=== PATIENT | male | born 1970 | race Caucasian/White ===

== ENCOUNTER 2021-06-03 06:54 | Emergency (ER) | payer OTHER ==
--- OUTSIDE RECORDS SUMMARY | 2021-06-03 06:56 | XMS REPORT | Continuity of Care Document ---
:1970 Author Organization [facility] t Address [address] [place] [address] Care Team Providers Name Role Phone [phone] Primary Care Physician Unavailable BEV WEBB Attending Clinician Unavailable RANJIT Attending Clinician Unavailable MANUEL Attending Clinician Unavailable MANUEL Admitting Clinician Unavailable Payers Payer Name Policy Type Policy Number Effective Date Expiration Date S amrita SANTIAGO O [id number] 2008 00:00:00 Problems This patient has no known problems. Allergies, Adverse Reactions, Alerts This patient has no known allergies or adverse reactions. Medications This patient has no known medications. Vital Signs Vital Name Observation Time Observation Value Comments Source WEIGHT 2020-06-06 10:09:28 104.6 kg Procedures This patient has no known procedures. Encounters Start End Encounter Admission Attending Care Care Encounter Source Date/Time Date/Time Type Type Clinicians Facility Department ID 2020-12-25 2020-12-25 Outpatient ELENA WEBB MDA MDA [id number] 12:59:00 23:59:00 GUILLE fofana 2020-06-06 2020-06-06 Outpatient ELENA CHURCH MDA MDA [id number] 08:39:49 23:59:00 QING fofana 2020-06-06 2020-06-06 Outpatient ELENA CHURCH MDA MDA [id number] 10:00:28 11:10:14 QING fofana 2019-10-27 2019-10-27 Outpatient ELENA WEBB MDA MDA [id number] 13:05:52 23:59:00 Wen fofana Results Test Description Test Time Test Comments Results Result Comments Source FOLATE, SERUM 2016-08-13 05:48:00 Test Item Value Reference Range Interpretation Comme nts FOLATE (BEAKER) (test code = 362) 7.6 ng/mL >=7.0 Effective 03/22/2014: Folate Reference Range ChangeNew: >=7.0 Previous: >=[id number] 11:08:00 Test Item Value Reference Range Interpretation Comments RPR SCREEN (BEAKER) (test code = Nonreactive Nonreactive 420) HEPATIC FUNCTION [id number] 09:56:00 Test Item Value Reference Range Interpretation Comments TOTAL PROTEIN (BEAKER) 7.2 gm/dL 6.0-8.3 Speci men slightly (test code = 770) hemolyzed ALBUMIN (BEAKER) (test 3.9 g/dL 3.5-5.0 Speci men slightly code = 1145) hemolyzed BILIRUBIN TOTAL 0.6 mg/dL 0.2-1.2 Specimen sli ghtly (BEAKER) (test code = hemoly zed 377) BILIRUBIN DIRECT 0.2 mg/dL 0.1-0.5 Specimen sl ightly (BEAKER) (test code = hemoly zed 706) ALKALINE PHOSPHATASE 38 U/L 40-150 L (BEAKER) (test code = 346) AST (SGOT) (BEAKER) 22 U/L 5-34 Specimen slightly (test code = 353) hemolyzed ALT (SGPT) (BEAKER) 21 U/L 6-55 Specimen slightly (test code = 347) hemolyzed FastingHEMOGLOBIN [id number] 07:54:00 Test Item Value Reference Range Interpretation Comments HEMOGLOBIN A1C (BEAKER) (test code = 5.8 % 4.3-6.1 368) T4, [id number] 06:32:00 Test Item Value Reference Range Interpretation Comments FREE T4 (BEAKER) (test code = 655) 0.79 ng/dL 0.70-1.48 TSH/FREE T4 IF [id number] 05:20:00 Test Item Value Reference Range Interpretation Comments THYROID STIMULATING HORMONE 6.44 uIU/mL 0.35-4.94 H (BEAKER) (test code = 772) VITAMIN [id number] 05:17:00 Test Item Value Reference Range Interpretation Comments VITAMIN B12 (BEAKER) (test code = 268 pg/mL 213-816 774) CALCIUM, [id number] 04:55:00 Test Item Value Reference Range Interpretation Comments CALCIUM IONIZED (BEAKER) (test 1.03 mmol/L 1.12-1.27 L code = 698) PH, BLOOD (BEAKER) (test code = 7.50 1810) BASIC METABOLIC [id number] 04:39:00 Test Item Value Reference Range Interpretation Comments SODIUM (BEAKER) 137 meq/L 136-145 (test code = 381) POTASSIUM (BEAKER) 4.0 meq/L 3.5-5.1 Specimen slightly (test code = 379) hemolyzed CHLORIDE (BEAKER) 106 meq/L 98-107 (test code = 382) CO2 (BEAKER) (test 21 meq/L 22-29 L code = 355) BLOOD UREA NITROGEN 15 mg/dL 7-21 (BEAKER) (test code = 354) CREATININE (BEAKER) 1.08 mg/dL 0.57-1.25 Specimen slightly (test code = 358) hemolyzed GLUCOSE RANDOM 99 mg/dL 70-105 (BEAKER) (test code = 652) CALCIUM (BEAKER) 9.1 mg/dL 8.4-10.2 (test code = 697) EGFR (BEAKER) (test 74 mL/min/1.73 ESTIMA NILSON GFR IS code = 1092) sq m NOT ACCURATE CREATININE CLEARANCE IN PREDICTING GLOMERULAR FILTRATION RATE . ESTIMATED GFR I S NOT APPLICABLE FOR DIALYSIS PATIEN TS. FastingLIPID [id number] 04:39:00 Test Item Value Reference Range Interpretation Comments TRIGLYCERIDES (BEAKER) 240 mg/dL Speci men slightly (test code = 540) hemolyzed CHOLESTEROL (BEAKER) 166 mg/dL Specime n slightly (test code = 631) hemolyzed HDL CHOLESTEROL (BEAKER) 34 mg/dL (test code = 976) LDL CHOLESTEROL 84 mg/dL CALCULATED (BEAKER) (test code = 633) Triglyceride Reference Range: Low Risk <150 Borderline 150-199 High Risk 200-499 Very High Risk >=500Cholesterol Reference Range: Low Risk <200 Borderline 200-239 High Risk >240HDL Cholesterol Reference Range: Low Risk >=60 High Risk <40LDL Cholesterol Reference Range: Optimal <100 Near Optimal 100-129 Borderline 130-159 High 160-189 Very High >=190 FastingPT/[id number] 04:29:00 Test Item Value Reference Range Interpretation Comments PROTIME (BEAKER) (test code = 12.9 seconds 11.7-14.7 759) INR (BEAKER) (test code = 370) 1.0 <=5.9 PARTIAL THROMBOPLASTIN TIME 26.4 seconds 22.5-36.0 (BEAKER) (test code = 760) RECOMMENDED COUMADIN/WARFARIN INR THERAPY RANGESSTANDARD DOSE: 2.0 - 3.0 Includes: PROPHYLAXIS forvenous thrombosis, systemic embolization; TREATMENT for venous thrombosis and/or pulmonary embolus.HIGH RISK: Target INR is 2.5-3.5 for patients with mechanical heart valves.CBC W/PLT COUNT & AUTO DIFFERENTIAL 2016-08-12 04:23:00 Test Item Value Reference Range Interpretation Comments WHITE BLOOD CELL COUNT (BEAKER) 7.8 K/ L 4.0-10.0 (test code = 775) RED BLOOD CELL COUNT (BEAKER) 3.88 M/ L 4.20-5.80 L (test code = 761) HEMOGLOBIN (BEAKER) (test code = 13.6 GM/DL 13.0-16.8 410) HEMATOCRIT (BEAKER) (test code = 38.4 % 40.0-50.0 L 411) MEAN CORPUSCULAR VOLUME (BEAKER) 98.8 fL 82.0-98.0 H (test code = 753) MEAN CORPUSCULAR HEMOGLOBIN 35.0 pg 27.0-33.0 H (BEAKER) (test code = 751) MEAN CORPUSCULAR HEMOGLOBIN CONC 35.4 GM/DL 32.0-36.0 (BEAKER) (test code = 752) RED CELL DISTRIBUTION WIDTH 12.7 % 10.3-14.2 (BEAKER) (test code = 412) PLATELET COUNT (BEAKER) (test code 90 K/CU MM 150-430 L = 756) MEAN PLATELET VOLUME (BEAKER) 7.5 fL 6.5-10.5 (test code = 754) NUCLEATED RED BLOOD CELLS (BEAKER) 0 /100 WBC 0-0 (test code = 413) NEUTROPHILS RELATIVE PERCENT 47 % (BEAKER) (test code = 429) LYMPHOCYTES RELATIVE PERCENT 41 % (BEAKER) (test code = 430) MONOCYTES RELATIVE PERCENT 9 % (BEAKER) (test code = 431) EOSINOPHILS RELATIVE PERCENT 1 % (BEAKER) (test code = 432) BASOPHILS RELATIVE PERCENT 1 % (BEAKER) (test code = 437) NEUTROPHILS ABSOLUTE COUNT 3.70 K/ L 1.80-8.00 (BEAKER) (test code = 670) LYMPHOCYTES ABSOLUTE COUNT 3.22 K/ L 1.48-4.50 (BEAKER) (test code = 414) MONOCYTES ABSOLUTE COUNT (BEAKER) 0.74 K/ L 0.00-1.30 (test code = 415) EOSINOPHILS ABSOLUTE COUNT 0.09 K/ L 0.00-0.50 (BEAKER) (test code = 416) BASOPHILS ABSOLUTE COUNT (BEAKER) 0.08 K/ L 0.00-0.20 (test code = 417) 0.00BASIC METABOLIC [id number] 00:53:00 Test Item Value Reference Range Interpretation Comments SODIUM (BEAKER) 137 meq/L 136-145 (test code = 381) POTASSIUM (BEAKER) 3.8 meq/L 3.5-5.1 Specimen slightly (test code = 379) hemolyzed CHLORIDE (BEAKER) 104 meq/L 98-107 (test code = 382) CO2 (BEAKER) (test 23 meq/L 22-29 code = 355) BLOOD UREA NITROGEN 15 mg/dL 7-21 (BEAKER) (test code = 354) CREATININE (BEAKER) 1.16 mg/dL 0.57-1.25 Specimen slightly (test code = 358) hemolyzed GLUCOSE RANDOM 139 mg/dL 70-105 H (BEAKER) (test code = 652) CALCIUM (BEAKER) 9.1 mg/dL 8.4-10.2 (test code = 697) EGFR (BEAKER) (test 68 mL/min/1.73 ESTIMA NILSON GFR IS code = 1092) sq m NOT ACCURATE CREATININE CLEARANCE IN PREDICTING GLOMERULAR FILTRATION RATE . ESTIMATED GFR I S NOT APPLICABLE FOR DIALYSIS PATIEN TS. CBC W/PLT COUNT & AUTO [id number] 00:37:00 Test Item Value Reference Range Interpretation Comments WHITE BLOOD CELL COUNT (BEAKER) 7.9 K/ L 4.0-10.0 (test code = 775) RED BLOOD CELL COUNT (BEAKER) 3.79 M/ L 4.20-5.80 L (test code = 761) HEMOGLOBIN (BEAKER) (test code = 13.5 GM/DL 13.0-16.8 410) HEMATOCRIT (BEAKER) (test code = 37.3 % 40.0-50.0 L 411) MEAN CORPUSCULAR VOLUME (BEAKER) 98.5 fL 82.0-98.0 H (test code = 753) MEAN CORPUSCULAR HEMOGLOBIN 35.6 pg 27.0-33.0 H (BEAKER) (test code = 751) MEAN CORPUSCULAR HEMOGLOBIN CONC 36.2 GM/DL 32.0-36.0 H (BEAKER) (test code = 752) RED CELL DISTRIBUTION WIDTH 12.8 % 10.3-14.2 (BEAKER) (test code = 412) PLATELET COUNT (BEAKER) (test code 88 K/CU MM 150-430 L = 756) MEAN PLATELET VOLUME (BEAKER) 7.6 fL 6.5-10.5 (test code = 754) NUCLEATED RED BLOOD CELLS (BEAKER) 0 /100 WBC 0-0 (test code = 413) NEUTROPHILS RELATIVE PERCENT 53 % (BEAKER) (test code = 429) LYMPHOCYTES RELATIVE PERCENT 37 % (BEAKER) (test code = 430) MONOCYTES RELATIVE PERCENT 9 % (BEAKER) (test code = 431) EOSINOPHILS RELATIVE PERCENT 1 % (BEAKER) (test code = 432) BASOPHILS RELATIVE PERCENT 0 % (BEAKER) (test code = 437) NEUTROPHILS ABSOLUTE COUNT 4.14 K/ L 1.80-8.00 (BEAKER) (test code = 670) LYMPHOCYTES ABSOLUTE COUNT 2.94 K/ L 1.48-4.50 (BEAKER) (test code = 414) MONOCYTES ABSOLUTE COUNT (BEAKER) 0.69 K/ L 0.00-1.30 (test code = 415) EOSINOPHILS ABSOLUTE COUNT 0.08 K/ L 0.00-0.50 (BEAKER) (test code = 416) BASOPHILS ABSOLUTE COUNT (BEAKER) 0.03 K/ L 0.00-0.20 (test code = 417) 0.00
[2021-06-03] MEDS ORDERED: KETOROLAC 30 MG/ML INJ ONE (07:31)
[2021-06-03] MEDS ORDERED: dexAMETHasone 10 MG/ML VIAL ONE (07:31)
[2021-06-03] MEDS ORDERED: HYDROCODONE/APAP 10/325 TAB ONE (07:31)
--- NOTE | 2021-06-03 08:29 | ER ---
[facility] Name: Gerry Grajeda Jr Age: 50 yrs Sex: Male : 1970 Arrival Date: 06/03/2021 Time: 06:56 Bed 6 Private MD: Diagnosis: Strain of muscle(s) and tendon(s) of the rotator cuff of left shoulder;Strain of other muscles, fascia and tendons at shoulder and upper arm level, left arm Presentation: 06/03 07:03 Chief complaint: Patient states: "my left shoulder has always bothered me, but nothing vg1 like this." Pt stated was carrying 'two big bags of books' and stated since carrying them is unable to rotate Left shoulder and the pain is unbearable. Coronavirus screen: Vaccine status: Patient reports receiving the 2nd dose of the covid vaccine. Client denies travel out of the [place] in the last 14 days. Ebola Screen: Patient negative for fever greater than or equal to 101.5 degrees Fahrenheit, and additional compatible Ebola Virus Disease symptoms. Initial Sepsis Screen: Does the patient meet any 2 criteria? No. Patient's initial sepsis screen is negative. Does the patient have a suspected source of infection? No. Patient's initial sepsis screen is negative. Risk Assessment: Do you want to hurt yourself or someone else? Patient reports no desire to harm self or others. Onset of symptoms was June 02, 2021. 07:03 Method Of Arrival: Ambulatory vg1 07:03 Acuity: AMISH 4 vg1 Triage Assessment: 07:06 General: Appears uncomfortable, Behavior is calm, cooperative. Pain: Complains of pain vg1 in anterior aspect of left shoulder and posterior aspect of left shoulder Pain currently is 7 out of 10 on a pain scale. at worst was 10 out of 10 on a pain scale. Historical: - Allergies: 07:06 No Known Allergies; vg1 - Home Meds: 07:06 Metoprolol Tartrate Oral [Active]; vg1 - PMHx: 07:06 Leukemia; vg1 - Immunization history:: Client reports receiving the 2nd dose of the Covid vaccine. - Social history:: Smoking status: Patient denies any tobacco usage or history of. - Family history:: pertinent for. Screenin:15 Abuse screen: Denies threats or abuse. Denies injuries from another. Nutritional jl7 screening: No deficits noted. Tuberculosis screening: No symptoms or risk factors identified. Fall Risk None identified. Assessment: 07:15 General: Appears in no apparent distress. uncomfortable, Behavior is calm, cooperative, jl7 appropriate for age. Pain: Complains of pain in left shoulder Pain currently is 7 out of 10 on a pain scale. Neuro: Level of Consciousness is awake, alert, obeys commands, Oriented to person, place, time, situation. Cardiovascular: Patient's skin is warm and dry. Respiratory: Airway is patent Respiratory effort is even, unlabored, Respiratory pattern is regular, symmetrical. Derm: Skin is pink, warm \\T\\ dry. Musculoskeletal: Range of motion: limited in left shoulder. 08:15 Reassessment: Patient appears in no apparent distress at this time. No changes from jl7 previously documented assessment. Patient and/or family updated on plan of care and expected duration. Pain level reassessed. Patient is alert, oriented x 3, equal unlabored respirations, skin warm/dry/pink. Vital Signs: 07:03 BP 148 / 89; Pulse 55; Resp 16; Temp 97.0; Pulse Ox 100% ; Weight 97.52 kg; Height 5 vg1 ft. 11 in. (180.34 cm); Pain 7/10; 08:45 BP 152 / 103; Pulse 58; Resp 17; Pulse Ox 100% ; jl7 07:03 Body Mass Index 29.99 (97.52 kg, 180.34 cm) vg1 ED Course: 06:56 Patient arrived in ED. kc5 07:06 Triage completed. vg1 07:06 Arm band placed on. vg1 07:09 Francisco J Lugo MD is Attending Physician. elisha 07:15 Patient has correct armband on for positive identification. Bed in low position. Call jl7 light in reach. Side rails up X 1. 07:19 Kerline Torrez RN is Primary Nurse. jl7 08:04 Shoulder Left (2 View) XRAY In Process Unspecified. EDMS 08:28 Martínez Ace MD is Referral Physician. elisha 08:54 No provider procedures requiring assistance completed. Patient did not have IV access jl7 during this emergency room visit. Administered Medications: 07:42 Drug: Ketorolac 60 mg Route: IM; Site: right deltoid; jl7 08:10 Follow up: Response: No adverse reaction; Pain is unchanged, physician notified jl7 07:42 Drug: Decadron (dexamethasone) 10 mg Route: IM; Site: left deltoid; jl7 08:10 Follow up: Response: No adverse reaction; Pain is unchanged, physician notified jl7 07:42 Drug: [place] (HYDROcodone-acetaminophen) 10 mg-325 mg 1 tabs Route: PO; jl7 08:10 Follow up: Response: No adverse reaction; Pain is unchanged, physician notified jl7 Outcome: 08:28 Discharge ordered by . elisha 08:54 Discharged to home ambulatory, with family. jl7 08:54 Condition: stable 08:54 Discharge instructions given to patient, Instructed on discharge instructions, follow up and referral plans. medication usage, Demonstrated understanding of instructions, follow-up care, medications, Prescriptions given X 4. 08:56 Patient left the ED. jl7 Signatures: Dispatcher [employer] EDFrancisco J De La Torre MD MD cha Leal, Jahala, RN RN jl7 Savanah Pennington RN RN vg1 Eleanor Huynh kc5
--- NOTE | 2021-06-03 08:29 | EDPHYS ---
Physician Documentation [facility] Name: Gerry Grajeda Jr Age: 50 yrs Sex: Male : 1970 Arrival Date: 06/03/2021 Time: 06:56 Bed 6 Private MD: ED Physician Francisco J Lugo HPI: 06/03 08:24 This 50 yrs old Male presents to ER via Ambulatory with complaints of elisha Shoulder Pain. 08:24 The patient or guardian complains of decreased range of motion, pain, that is acute. elisha left shoulder. Context: The problem was sustained at home. Onset: The symptoms/episode began/occurred yesterday. Modifying factors: the symptoms are alleviated by remaining still, The symptoms are aggravated by lifting weight, movement, rotation of arm. Associated signs and symptoms: The patient has no apparent associated signs or symptoms. Severity of symptoms: At their worst the symptoms were moderate, in the emergency department the symptoms are unchanged. Treatment prior to arrival includes: no previous treatment. Historical: - Allergies: 07:06 No Known Allergies; vg1 - Home Meds: 07:06 Metoprolol Tartrate Oral [Active]; vg1 - PMHx: 07:06 Leukemia; vg1 - Immunization history:: Client reports receiving the 2nd dose of the Covid vaccine. - Social history:: Smoking status: Patient denies any tobacco usage or history of. - Family history:: pertinent for. ROS: 08:24 Constitutional: Negative for fever, chills, and weight loss, Eyes: Negative for injury, elisha pain, redness, and discharge, ENT: Negative for injury, pain, and discharge, Neck: Negative for injury, pain, and swelling, Cardiovascular: Negative for chest pain, palpitations, and edema, Respiratory: Negative for shortness of breath, cough, wheezing, and pleuritic chest pain, Abdomen/GI: Negative for abdominal pain, nausea, vomiting, diarrhea, and constipation, Back: Negative for injury and pain, : Negative for injury, bleeding, discharge, and swelling, Skin: Negative for injury, rash, and discoloration, Neuro: Negative for headache, weakness, numbness, tingling, and seizure, Psych: Negative for depression, anxiety, suicide ideation, homicidal ideation, and hallucinations, Allergy/Immunology: Negative for hives, rash, and allergies, Endocrine: Negative for neck swelling, polydipsia, polyuria, polyphagia, and marked weight changes, Hematologic/Lymphatic: Negative for swollen nodes, abnormal bleeding, and unusual bruising. 08:24 MS/extremity: Positive for decreased range of motion, pain, tenderness, of the anterior aspect of left shoulder and posterior aspect of left shoulder. Exam: 08:24 Constitutional: This is a well developed, well nourished patient who is awake, alert, elisha and in no acute distress. Head/Face: Normocephalic, atraumatic. Eyes: Pupils equal round and reactive to light, extra-ocular motions intact. Lids and lashes normal. Conjunctiva and sclera are non-icteric and not injected. Cornea within normal limits. Periorbital areas with no swelling, redness, or edema. ENT: Nares patent. No nasal discharge, no septal abnormalities noted. Tympanic membranes are normal and external auditory canals are clear. Oropharynx with no redness, swelling, or masses, exudates, or evidence of obstruction, uvula midline. Mucous membranes moist. Neck: Trachea midline, no thyromegaly or masses palpated, and no cervical lymphadenopathy. Supple, full range of motion without nuchal rigidity, or vertebral point tenderness. No Meningismus. Chest/axilla: Normal chest wall appearance and motion. Nontender with no deformity. No lesions are appreciated. Cardiovascular: Regular rate and rhythm with a normal S1 and S2. No gallops, murmurs, or rubs. Normal PMI, no JVD. No pulse deficits. Respiratory: Lungs have equal breath sounds bilaterally, clear to auscultation and percussion. No rales, rhonchi or wheezes noted. No increased work of breathing, no retractions or nasal flaring. Abdomen/GI: Soft, non-tender, with normal bowel sounds. No distension or tympany. No guarding or rebound. No evidence of tenderness throughout. Back: No spinal tenderness. No costovertebral tenderness. Full range of motion. Male : Normal genitalia with no discharge or lesions. Skin: Warm, dry with normal turgor. Normal color with no rashes, no lesions, and no evidence of cellulitis. Neuro: Awake and alert, GCS 15, oriented to person, place, time, and situation. Cranial nerves II-XII grossly intact. Motor strength 5/5 in all extremities. Sensory grossly intact. Cerebellar exam normal. Normal gait. Psych: Awake, alert, with orientation to person, place and time. Behavior, mood, and affect are within normal limits. 08:24 Musculoskeletal/extremity: Extremities: decreased ROM, swelling, tenderness, ROM: limited active range of motion due to pain, limited passive range of motion due to pain, Circulation is intact in all extremities. Sensation intact. Compartment Syndrome exam of affected extremity: is normal. Joints: limited range of motion, pain at rest, painful range of motion. Vital Signs: 07:03 BP 148 / 89; Pulse 55; Resp 16; Temp 97.0; Pulse Ox 100% ; Weight 97.52 kg; Height 5 vg1 ft. 11 in. (180.34 cm); Pain 7/10; 08:45 BP 152 / 103; Pulse 58; Resp 17; Pulse Ox 100% ; jl7 07:03 Body Mass Index 29.99 (97.52 kg, 180.34 cm) vg1 MDM: 07:09 Patient medically screened. [facility] 08:27 Differential diagnosis: Anterior dislocation without fracture, DJD, tendonitis. Data elisha reviewed: vital signs, nurses notes, radiologic studies, plain films. Data interpreted: cardiac monitor: rate is 55 beats/min, rhythm is regular, Pulse oximetry: on. Test interpretation: by ED physician or midlevel provider: plain radiologic studies. Counseling: I had a detailed discussion with the patient and/or guardian regarding: the historical points, exam findings, and any diagnostic results supporting the discharge/admit diagnosis, radiology results, the need for outpatient follow up, for definitive care, a family practitioner, a orthopedic surgeon. 06/03 07:23 Order name: Shoulder Left (2 View) XRAY elisha Administered Medications: 07:42 Drug: Ketorolac 60 mg Route: IM; Site: right deltoid; jl7 08:10 Follow up: Response: No adverse reaction; Pain is unchanged, physician notified jl7 07:42 Drug: Decadron (dexamethasone) 10 mg Route: IM; Site: left deltoid; jl7 08:10 Follow up: Response: No adverse reaction; Pain is unchanged, physician notified jl7 07:42 Drug: [place] (HYDROcodone-acetaminophen) 10 mg-325 mg 1 tabs Route: PO; jl7 08:10 Follow up: Response: No adverse reaction; Pain is unchanged, physician notified jl7 Disposition Summary: 06/03/21 08:28 Discharge Ordered Location: Home elisha Problem: new elisha Symptoms: have improved elisha Condition: Stable elisha Diagnosis - Strain of muscle(s) and tendon(s) of the rotator cuff of left shoulder elisha - Strain of other muscles, fascia and tendons at shoulder and upper arm level, left elisha arm Followup: elisha - With: Private Physician - When: 2 - 3 days - Reason: Recheck today's complaints, Continuance of care, Re-evaluation by your physician Followup: elisha - With: Martínez Ace MD - When: 2 - 3 days - Reason: Recheck today's complaints, Continuance of care, Re-evaluation by your physician Discharge Instructions: - Discharge Summary Sheet elisha - Rotator Cuff Tendinitis elisha - Shoulder Pain elisha - Shoulder Pain, Auzh-cg-Eeow elisha - Shoulder Sprain elisha Forms: - Medication Reconciliation Form elisha - Thank You Letter elisha - Antibiotic Education elisha - Prescription Opioid Use [facility] Prescriptions: - dexamethasone 2 mg Oral tablet - take 1 tablet by ORAL route 2 times per day; 10 tablet; Refills: 0, Product elisha Selection Permitted - Diclofenac Sodium 75 mg Oral tablet,delayed release (DR/EC) - take 1 tablet by ORAL route 2 times per day; 2 tablet; Refills: 0, Product elisha Selection Permitted - Cyclobenzaprine 5 mg Oral Tablet - take 1 tablet by ORAL route 3 times per day As needed; 15 tablet; Refills: 0, elisha Product Selection Permitted - Tylenol-Codeine #3 300 mg-30 mg Oral - take 2 tablet by ORAL route every 6 hours; 20 tablet; Refills: 0, Product elisha Selection Permitted Signatures: Dispatcher [employer] Francisco J Jordan MD MD cha Leal, Jahala, RN RN jl7 Savanah Pennington RN RN vg1
--- NOTE | 2021-06-03 08:36 | RAD REPORT ---
EXAM DESCRIPTION: RAD - Shoulder Left 2 View - 06/03/2021 8:04 am CLINICAL HISTORY: PAIN COMPARISON: No comparisons TECHNIQUE: Internal and external rotation views of the left shoulder were obtained. FINDINGS: There is no fracture or dislocation. AC joint is normal in appearance. Minimal degenerativ e changes involve the undersurface of the acromion. Acromial humeral joint space is narrowed slightly . No abnormal soft tissue calcifications seen. No suspicious soft tissue finding. IMPRESSION: Negative two-view left shoulder examination for acute findings. Continued, unexplained left shoulder symptoms can be further addressed with outpatient MRI imaging.
[2021-06-03 09:02] VITALS: TEMP 97; O2SAT 100
[2021-06-03 09:03] VITALS: BP 152/103
== END 2021-06-03 08:56 | disposition home or self-care (01) ==
LOC: ER 06:54
DX: S46.012A Strain of muscle(s) and tendon(s) of the rotator cuff of left shoulder, initial encounter (principal); S46.812A Strain of other muscles, fascia and tendons at shoulder and upper arm level, left arm, initial encounter; Z85.6 Personal history of leukemia
CPT/HCPCS: 73030; 96372; 99283; J1100